=== PATIENT | male | born 1960 | race Caucasian/White ===

== ENCOUNTER → 2025-07-26 08:15 | Outpatient (REF) | payer MEDICARE, SELFPAY | LOC: RCS 08:15 | PROVIDERS: ATTENDING PHYSICIAN Nurse Practitioner; FAMILY PHYSICIAN Family Medicine | DX: I10 Essential (primary) hypertension (principal); I25.10 Atherosclerotic heart disease of native coronary artery without angina pectoris; R06.09 Other forms of dyspnea | CPT/HCPCS: 93306; Q9950 ==